=== PATIENT | male | born 1985 | race Caucasian/White ===

== ENCOUNTER 2021-05-14 14:04 | Emergency (ER) | payer OTHER ==
[2021-05-14 14:15] VITALS: BP 136/85
[2021-05-14] MEDS ORDERED: BUFFERED LIDOCAINE 10 ML SYRINGE SUBQ STA (14:28)
--- NOTE | 2021-05-14 14:35 | ED Physician Documentation ---
History of Present Illness - Stated complaint Stated Complaint: RT FINGER LAC - Chief complaint Chief Complaint: Laceration - Additonal information Additional information: 35-year-old male presents emergency department for evaluation of a right middle fingertip partial amputation when using a mandolin slicer at home. Tetanus is up-to-date. He is right-hand dominant. Review of Systems Constitutional: denies: Fever, Chills Eyes: reports: Reviewed and negative Ears: reports: Reviewed and negative Nose: reports: Reviewed and negative Throat: reports: Reviewed and negative Cardiac: reports: Reviewed and negative Respiratory: reports: Reviewed and negative Skin: reports: Laceration (s) PD PAST MEDICAL HISTORY - Present Medications Home Medications: Ambulatory Orders Medication Instructions Recorded Confirmed HYDROcod/ACETAM 5/325 [[place] 5/325] 1 tablet PO BID PRN #10 tablet 05/14/21 - Allergies Allergies/Adverse Reactions: Allergies Allergy/AdvReac Type Severity Reaction Status Date / Time Penicillins Allergy Hives Verified 05/14/21 14:12 PD ED PE EXPANDED - Extremities Extremities: Right finger(s) (Right middle finger with an oblique distal tip amputation that extends through the nail bed on the ulnar side.) Results - Vitals Vitals: Vital Signs - 24 hr 05/14/21 14:12 Temperature 37.1 C Heart Rate 95 Respiratory 18 Rate Blood Pressure 136/85 H O2 Saturation 100 Oxygen O2 Source Room air PD MEDICAL DECISION MAKING - ED course Complexity details: re-evaluated patient, d/w patient ED course: 35-year-old male presents emergency department for evaluation of a partial right middle fingertip oblique amputation sustained when using a mandolin slicer at home. Tetanus is up-to-date. Unfortunately this was not amenable to primary closure. There was no bone involvement. Surgicel was placed on the wound bed and routine care and expectant emergent return precautions for this were discussed. This is quite a painful wound therefore I will prescribe a limited amount of hydrocodone before patient does dressing changes. I am prescribing a short course of short-acting opioid pain medication for this patient. I have reviewed the patients [place] and no concerning findings were noted. I have discussed that the opioids are for short term therapy only, and will not be refilled from the ED. Departure - Departure Disposition: 01 Home, Self Care Clinical Impression: Amputation of finger tip Qualifiers: Encounter type: initial encounter Qualified Code(s): S68.119A - Complete traumatic metacarpophalangeal amputation of unspecified finger, initial encounter Condition: Stable Record reviewed to determine appropriate education?: Yes Prescriptions: HYDROcod/ACETAM 5/325 [[place] 5/325] 1 tablet PO BID PRN #10 tablet PRN Reason: Pain Comments: Elliott your finger laceration/tip amputation will heal well moving forward however will probably take about [address] a product on the wound bed called Surgicel. This helps clot to form. You do not need to take it off it will dry up and fall away over the next week. I am prescribing a small amount of hydrocodone to help you reduce your pain before you do dressing changes. If at any point you have concerns of infection, fevers finger redness milky drainage then please return immediately to the ER for a second evaluation. I am prescribing a short course of narcotic pain medication for you. These are potentially dangerous and addictive medications that should be used carefully. These medications may constipate you. Take an [id number] stool softener (docusate) twice daily with plenty of water while taking these medications. If you go 24 hours without a bowel movement, take [id number] miralax, per pac ge instructions. Do not drink or drive while taking these medications. If you received narcotic or sedating medications while in the emergency department, do not drive for 24 hours. Store this medication in a safe, secure place and out of reach of children. It is a violation of federal law to give or sell this medication to another person or to use in a manner other than prescribed. The ED will not refill narcotic prescriptions, including prescriptions lost or stolen. To dispose of unwanted medications: 1. [facility] at [address] in [place] has a medication drop box. They accept prescription medications (in pill form) Saturday through Saturday 9:00 a.m. to 5:00 p.m. 2. The [facility] [employer] accepts prescription medications (in pill form only) for disposal year round. Call for more information. 3. Contact the [facility] for the next [facility] sponsored prescription drug collection event. , [phone], or [phone]; Note that many narcotic pain relievers also contain Tylenol/acetaminophen. Please ensure that your total dose of acetaminophen from all sources does not exceed 3 g (3000 mg) per day.
== END 2021-05-14 15:20 | disposition home or self-care (01) ==
LOC: ED 14:04
DX: S61.312A Laceration without foreign body of right middle finger with damage to nail, initial encounter (principal); W27.4XXA Contact with kitchen utensil, initial encounter; Y93.G9 Activity, other involving cooking and grilling; Y92.009 Unspecified place in unspecified non-institutional (private) residence as the place of occurrence of the external cause
CPT/HCPCS: 99281; 99282